=== PATIENT | female | born 1965 | race Caucasian/White ===

== ENCOUNTER 2020-12-17 07:54 | Outpatient (CLI) | payer OTHER, SELFPAY ==
[2020-12-17 08:10] VITALS: BP 131/81; PULSE 95; RESP 16; TEMP 36.7; O2SAT 93; BMI 34.4
[2020-12-17 08:38] VITALS: BP 124/78; PULSE 92; RESP 18; O2SAT 92
[2020-12-17 09:38] VITALS: BP 126/78; PULSE 90; RESP 16; TEMP 36.7
== END 2020-12-17 07:55 | disposition home or self-care (01) ==
LOC: OPS 07:58
PROVIDERS: PCP Nurse Practitioner; Visit Provider Family Medicine
DX: U07.1 COVID-19 (principal)
CPT/HCPCS: 96365

== ENCOUNTER → 2023-02-27 13:39 | Outpatient (BNVA) | payer MEDICARE, OTHER, SELFPAY | PROVIDERS: PCP Nurse Practitioner; Referring Provider Family Medicine; Visit Provider Surgery | DX: Z12.11 Encounter for screening for malignant neoplasm of colon (principal) | CPT/HCPCS: 99024; 99204 ==

== ENCOUNTER 2024-01-05 10:02 | Outpatient (CLI) | payer MEDICARE, OTHER, SELFPAY ==
[2024-01-05 10:08] VITALS: BMI 35.2
--- NOTE | 2024-01-05 10:20 | NMCV_ITS ---
NM yonas perf SPECT r/s* [id number] Shannen Hines Age: 58 Gender: F : 1965 Exam Date: 01/05/2024 10:20 Ordering Phys: Noemy Harden MD Technologist: RAYSA Frias Exam Location: [facility] Indications: CP STRESS TEST Please see separate stress test report in [facility] for full findings IMAGE PROTOCOL Rest/Stress 1 Lexiscan Day Radiopharmaceutical Dose (mCi) Administration Site Administered by Rest: Tc-99m 10.7 IV RAYSA Richter Sestamibi Stress:Tc-99m 32.4 IV RAYSA Richter Sestamibi Rest: 05-Jan-2024 60 Discovery 630 Stress: 05-Jan-2024 30 Discovery 630 0.4mg Lexiscan. Images obtained in supine and prone position. SPECT RESULTS Technical Quality: Good Raw Data Analysis: Breast attenuation Image Corrections: No attenuation or motion correction applied Summed Stress Score: 2 Summed Rest Score: 3 Summed Difference Score: 0 PERFUSION FINDINGS Medium sized area of patchy decreased tracer uptake noted in the basal to distal inferolateral wall on both rest and stress images which has worsened slightly on the stress images, in the absence of wall motion abnormality it could be an artifact. FUNCTIONAL RESULTS (calculated via Gated SPECT) Stress Image LV EF (%): 74 Stress EDV (mL):70 TID: 1 Stress ESV (mL):18 FUNCTIONAL FINDINGS: There is normal left ventricular systolic function. IMPRESSIONS This study is negative for ischemia Austyn Mahmood MD (Electronically Signed) Final Date: 05 January 2024 20:26 S
--- NOTE | 2024-01-05 10:20 | ECG_ITS ---
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 Interpretive Statements LEXISCAN SESTAMIBI STRESS TEST Procedure: At the baseline, the blood pressure was 151/87 mmHg with a heart rate of 108 bpm. The electrocardiogram showed normal sinus rhythm, normal axis with normal ST and T's. The Lexiscan was infused over a period of 20 seconds. A total of 0.4 mg of Lexiscan was infused. The stress phase was continued for a total of 5 minutes. Heart rate was at the end of stress phase was 115 bpm and a blood pressure of 160/92 mmHg. The EKG at the peak infusion revealed normal sinus rhythm with no significant ST-T wave changes. Sestamibi was injected 20 seconds after the Lexiscan infusion. Blood pressure at the end of recovery phase was 135/85 mmHg with a heart rate of 115 bpm. Conclusion: 1. Normal EKG response to Lexiscan infusion 2. No Lexiscan induced chest pain or cardiac arrhythmia. 3. Normal blood pressure and heart rate response. 4. Sestamibi/sestamibi perfusion scan pending; see separate report. Electronically Signed On 01-12-2024 21:08:52 CDT by Camden Valdovinos M.D. [id number]
[2024-01-05] MEDS: regadenoson 0.4 Mg/5 ml Syringe IVP (12:19)
[2024-01-05 12:37] VITALS: BP 135/84; PULSE 68
== END 2024-01-05 10:03 | disposition home or self-care (01) ==
LOC: CDL 10:03
PROVIDERS: PCP Family Medicine; Visit Provider Family Medicine
DX: R07.9 Chest pain, unspecified (principal); R06.02 Shortness of breath
CPT/HCPCS: 36415; 78452; 93017; 96374; A9500; J2785

== ENCOUNTER → 2025-02-25 13:56 | Outpatient (BNVA) | payer MEDICARE, OTHER, SELFPAY | PROVIDERS: PCP Family Medicine; Visit Provider Family Medicine | DX: E11.65 Type 2 diabetes mellitus with hyperglycemia (principal); Z79.4 Long term (current) use of insulin; E78.2 Mixed hyperlipidemia; I10 Essential (primary) hypertension; E03.8 Other specified hypothyroidism; M79.7 Fibromyalgia; G89.4 Chronic pain syndrome; G93.32 Myalgic encephalomyelitis/chronic fatigue syndrome | CPT/HCPCS: 80053; 80061; 82043; 82607; 83036; 84439; 84443; 85025 ==